=== PATIENT | male | born 2000 | race Caucasian/White ===

== ENCOUNTER 2020-01-22 19:50 | Emergency (ER) | payer BC ==
[2020-01-22] MEDS ORDERED: Cephalexin 250 MG Cap PO ONE (19:51)
[2020-01-22] MEDS ORDERED: Diphtheria,Pertussis(Acell),Tetanus Vaccine 0.5 ML SDV IM ONE (20:28)
--- NOTE | 2020-01-22 21:35 | EDM.PDOC ---
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 - Related Data Allergies Allergy/AdvReac Type Severity Reaction Status Date / Time No Known Allergies Allergy Verified 01/22/20 20:12 Home Meds: Home Meds NK [No Known Home Meds] 10/19/13 [History] Past Medical History - Past Health History Medical/Surgical History: Denies Medical/Surgical History ED ROS GENERAL - Review of Systems Review Of Systems: See Below Constitutional: Reports: No Symptoms HEENT: Reports: No Symptoms Respiratory: Reports: No Symptoms Cardiovascular: Reports: No Symptoms Endocrine: Reports: No Symptoms GI/Abdominal: Reports: No Symptoms : Reports: No Symptoms Musculoskeletal: Reports: No Symptoms Skin: Reports: Wound Neurological: Reports: No Symptoms Psychiatric: Reports: No Symptoms Hematologic/Lymphatic: Reports: No Symptoms Immunologic: Reports: No Symptoms ED EXAM, SKIN/RASH Exam: See Below Exam Limited By: No Limitations General Appearance: Alert, WD/WN, Anxious Respiratory/Chest: No Respiratory Distress Cardiovascular: Regular Rate, Rhythm Skin: Other (L index finger with 2 linear lacs parallel to the long axis, both over prox phalange, not over joint, 1.5 cm dorsal and medial, tendon exposed without injury, parallel to tendon, FROM DIP and PIP, sensory intact, there w as a 2 cm lac on the doral lateral aspect, 1% lido without with #27 needle used for local, both cleaned x 12-15 with gauze and NS, both closed with 3-0 Prolene x 3 with good apposition of margins, no fb's, should heal well with minimal scar, done steriely) Course - Orders/Labs/Meds Orders: Active Orders 24 hr Category Date Time Status Vaccines to be Administered [RC] PER UNIT ROUTINE Care 01/22/20 20:28 Active Meds: Medications Discontinued Medications Generic Name Dose Route Start Last Admin Trade Name Freq PRN Reason Stop Dose Admin Diphtheria/Tetanus/Acell Pertussis 0.5 ml 01/22/20 20:28 Adacel IM 01/22/20 20:29 .ONCE ONE Departure - Departure Time of Disposition: 21:29 Disposition: Home, Self-Care 01 Condition: Good Clinical Impression: Laceration of finger of left hand - Discharge Information *PRESCRIPTION DRUG MONITORING PROGRAM REVIEWED*: Not Applicable *COPY OF PRESCRIPTION DRUG MONITORING REPORT IN PATIENT DONAVAN: Not Applicable Instructions: Laceration Care, Adult Referrals: PCP,None [Primary Care Provider] - Additional Instructions: Keep clean and dry and covered with a dressing. Limit use of your finger as you want to put the tissues to rest to allow them to heal. To reduce risk of infection, take cephalexin 250 mg 2 capsules 3 times a day until gone, first dose tonight. See your doctor in 6 days to remove sutures. See a doctor the same day for any increase in redness, swelling, pain, warmth, fever or drainage. - My Orders Last 24 Hours: My Active Orders 01/22/20 20:28 Vaccines to be Administered [RC] PER UNIT ROUTINE - Assessment/Plan Last 24 Hours: My Active Orders 01/22/20 20:28 Vaccines to be Administered [RC] PER UNIT ROUTINE
== END 2020-01-22 21:50 | disposition home or self-care (01) ==
LOC: FB.ED 19:50
DX: S61.211A Laceration without foreign body of left index finger without damage to nail, initial encounter (principal); Z23 Encounter for immunization; W26.0XXA Contact with knife, initial encounter
CPT/HCPCS: 12001; 90471; 90715; 99282; A9270